=== PATIENT | male | born 1985 | race Caucasian/White ===

== ENCOUNTER 2016-12-13 20:09 | Emergency (ER) | payer BC ==
[~2016-12-13] VITALS: Ht 182.9 cm; Wt 87.6 kg
[~2016-12-13 20:09] MED LIST: IBUP600T26 PO; IBUP800T23 PO; LORTA5 PO
[2016-12-13 20:14] VITALS: BP 141/89; PULSE 97; RESP 16; TEMP 98.4; O2SAT 98
[2016-12-13] MEDS ORDERED: IBUPROFEN 600 MG TAB PO ONE (21:00)
--- NOTE | 2016-12-13 21:10 | RADRPT ---
EXAM DATE/TIME: 12/13/2016 20:50 [facility] COMPARISON: No previous studies available for comparison. INDICATIONS : Foot and ankle pain with no known injury. MEDICAL HISTORY : None. SURGICAL HISTORY : None. ENCOUNTER: Initial ACUITY: 1 day PAIN SCORE: 6/10 LOCATION: Left Foot. FINDINGS: Three view examination of the left foot demonstrates no soft tissue swelling, dislocation, or fractur e. The tarsal bones appear intact. The interphalangeal and metatarsophalangeal joints are intact. The calcaneus is intact. Bony mineralization is normal. CONCLUSION: Negative exam. Lc Steele MD on December 13, 2016 at 21:08 Board Certified Radiologist. This report was verified electronically.
--- NOTE | 2016-12-13 21:10 | RADRPT ---
EXAM DATE/TIME: 12/13/2016 20:50 [facility] COMPARISON: No previous studies available for comparison. INDICATIONS : Foot and ankle pain with no known injury. MEDICAL HISTORY : None. SURGICAL HISTORY : None. ENCOUNTER: Initial ACUITY: 1 day PAIN SCORE: 6/10 LOCATION: Left Ankle. FINDINGS: Three view exam was performed of the left ankle. The bony structures are in normal alignment. No ev idence of fracture, dislocation, or soft tissue swelling. The ankle mortise is intact. No radiopaqu e foreign bodies are seen. Bony mineralization is normal. CONCLUSION: Negative exam. Lc Steele MD on December 13, 2016 at 21:08 Board Certified Radiologist. This report was verified electronically.
--- NOTE | 2016-12-13 21:21 | PD ---
HPI . Left foot and ankle pain Chief Complaint: Musculoskeletal Complaint Time Seen by Provider: 20:37 Travel History International Travel<30 days: No Contact w/Intl Traveler<30days: No Traveled to known affect area: No History of Present Illness HPI 31-year-old male patient presents emergency department for evaluation of left foot and ankle pain. Patient states [place] and [place] of elevated boxes multiple times. Patient is unsure if he injured it during one of those jumps. Patient was noticing the pain and planning on going to see a environmental services associate on Thursday. Patient has a set of crutches at home that he got out and was starting to use and he actually slipped with the crutches and banged his foot down on the ground causing an exacerbation in the pain that was pre-existing. That is when the patient reported the emergency department for evaluation. The left foot and ankle are neurovascularly intact. Patient denies any major medical history. Patient does not take any daily medication. Patient has any fevers, chills, shortness breath, chest pain, malaise. Patient has been ambulatory on the left foot prior to accidentally banging it into the ground when he slipped on the crutches. PFSH Past Medical History Medical History: Denies Significant Hx Cancer: No Cardiovascular Problems: No Diminished Hearing: No Endocrine: No Genitourinary: Yes (INFECTION) Headaches: Yes Immune Disorder: No Musculoskeletal: No Neurologic: Yes Psychiatric: No Reproductive: No Respiratory: No Immunizations Current: Yes Tetanus Vaccination: < 5 Years Influenza Vaccination: No ?: Not Past Surgical History Abdominal Surgery: No Cardiac Surgery: No Eye Surgery: Yes (STRABISMUS) Oral Surgery: Yes (TONSILLECTOMY) Pacemaker: No Thoracic Surgery: No Tonsillectomy: Yes Social History Alcohol Use: Yes (SOCIALLY) Tobacco Use: No Substance Use: No Allergies-Medications (Allergen,Severity, Reaction): Coded Allergies: No Known Allergies (Unverified , 12/13/16) Reported Meds & Prescriptions Reported Meds & Active Scripts Active No Active Prescriptions or Reported Medications Review of Systems Except as stated in HPI: all other systems reviewed are Neg Physical Exam Narrative GENERAL: Well-nourished, well-developed 31-year-old male patient in no acute distress. Nontoxic appearing. SKIN: Focused skin assessment warm/dry. HEAD: Normocephalic. Atraumatic. NECK: Supple, trachea midline. No JVD or lymphadenopathy. CARDIOVASCULAR: Regular rate and rhythm without murmurs, gallops, or rubs. RESPIRATORY: Breath sounds equal bilaterally. No accessory muscle use. GASTROINTESTINAL: Abdomen soft, non-tender, nondistended. MUSCULOSKELETAL: Left foot pain with palpation. Mild edema noted. No obvious deformity. Data Data Last Documented VS Vital Signs Date Time Temp Pulse Resp B/P (MAP) Pulse Ox O2 Delivery O2 Flow Rate FiO2 12/13/16 20:14 98.4 97 16 141/89 (106) 98 Orders Orders Ankle, Complete ([id number]) (12/13/16 20:47) Foot, Complete ([id number]) (12/13/16 20:47) Ice/Cold Pack (12/13/16 20:47) Ibuprofen (Motrin) (12/13/16 21:00) Ed Discharge Order (12/13/16 21:21) MDM Medical Decision Making Medical Screen Exam Complete: Yes Emergency Medical Condition: Yes Differential Diagnosis Differential diagnosis includes but not limited to left foot fracture, left foot contusion, left foot sprain Narrative Course 31-year-old male patient presents emergency department for evaluation of left foot and ankle pain. Patient does not know of any exact injury that caused the pain. Patient had [place] and jumping [place] of elevated boxes multiple times and he believes that has contributed to the pain. Patient was planning on seeing a environmental services associate on Thursday and got a set of crutches that he had at home out. Patient actually slipped while using the crutches and banged his left foot into the ground. That caused an exacerbation of the pre-existing pain and brought the patient to the emergency department. The left foot is neurovascularly intact. Mild edema noted. No obvious deformity. X-ray of the left foot and ankle ordered and pending. X-ray of the left foot shows no acute findings. The left foot will be Sixto wrap and patient will be discharged home with instructions for rice therapy to the left foot and to follow up with his primary care environmental services associate. Diagnosis Primary Impression: Foot pain, left Additional Impression: Ankle pain, left Qualified Codes: M25.572 - Pain in left ankle and joints of left foot Referrals: Hide Measuring Machine Operator Patient Instructions: Foot Contusion (ED), General Instructions Additional Instructions: Please return to emergency department if your symptoms return or worsen. Follow up with your primary care provider and environmental services associate. Rice therapy to left foot and ankle. Rest, ice, Sixto wrap with activity and elevate the dressing. May use [id number] ibuprofen as needed for pain or swelling. Scripts No Active Prescriptions or Reported Meds Disposition: 01 DISCHARGE HOME Condition: Stable Ester Rivera Dec 13, 2016 21:21
--- NOTE | 2016-12-13 21:21 | PD ---
HPI . Left foot and ankle pain Chief Complaint: Musculoskeletal Complaint Time Seen by Provider: 20:37 Travel History International Travel<30 days: No Contact w/Intl Traveler<30days: No Traveled to known affect area: No History of Present Illness HPI 31-year-old male patient presents emergency department for evaluation of left foot and ankle pain. Patient states he had [place] and jumping off of elevated boxes multiple times. Patient is unsure if he injured it during one of those jumps. Patient was noticing the pain and planning on going to see a conventions assistant on Thursday. Patient has a set of crutches at home that he got out and was starting to use and he actually slipped with the crutches and banged his foot down on the ground causing an exacerbation in the pain that was pre-existing. That is when the patient reported the emergency department for evaluation. The left foot and ankle are neurovascularly intact. Patient denies any major medical history. Patient does not take any daily medication. Patient has any fevers, chills, shortness breath, chest pain, malaise. Patient has been ambulatory on the left foot prior to accidentally banging it into the ground when he slipped on the crutches. PFSH Past Medical History Medical History: Denies Significant Hx Cancer: No Cardiovascular Problems: No Diminished Hearing: No Endocrine: No Genitourinary: Yes (INFECTION) Headaches: Yes Immune Disorder: No Musculoskeletal: No Neurologic: Yes Psychiatric: No Reproductive: No Respiratory: No Immunizations Current: Yes Tetanus Vaccination: < 5 Years Influenza Vaccination: No ?: Not Past Surgical History Abdominal Surgery: No Cardiac Surgery: No Eye Surgery: Yes (STRABISMUS) Oral Surgery: Yes (TONSILLECTOMY) Pacemaker: No Thoracic Surgery: No Tonsillectomy: Yes Social History Alcohol Use: Yes (SOCIALLY) Tobacco Use: No Substance Use: No Allergies-Medications (Allergen,Severity, Reaction): Coded Allergies: No Known Allergies (Unverified , 12/13/16) Reported Meds & Prescriptions Reported Meds & Active Scripts Active No Active Prescriptions or Reported Medications Review of Systems Except as stated in HPI: all other systems reviewed are Neg Physical Exam Narrative GENERAL: Well-nourished, well-developed 31-year-old male patient in no acute distress. Nontoxic appearing. SKIN: Focused skin assessment warm/dry. HEAD: Normocephalic. Atraumatic. NECK: Supple, trachea midline. No JVD or lymphadenopathy. CARDIOVASCULAR: Regular rate and rhythm without murmurs, gallops, or rubs. RESPIRATORY: Breath sounds equal bilaterally. No accessory muscle use. GASTROINTESTINAL: Abdomen soft, non-tender, nondistended. MUSCULOSKELETAL: Left foot pain with palpation. Mild edema noted. No obvious deformity. Data Data Last Documented VS Vital Signs Date Time Temp Pulse Resp B/P (MAP) Pulse Ox O2 Delivery O2 Flow Rate FiO2 12/13/16 20:14 98.4 97 16 141/89 (106) 98 Orders Orders Ankle, Complete ([id number]) (12/13/16 20:47) Foot, Complete ([id number]) (12/13/16 20:47) Ice/Cold Pack (12/13/16 20:47) Ibuprofen (Motrin) (12/13/16 21:00) Ed Discharge Order (12/13/16 21:21) MDM Medical Decision Making Medical Screen Exam Complete: Yes Emergency Medical Condition: Yes Differential Diagnosis Differential diagnosis includes but not limited to left foot fracture, left foot contusion, left foot sprain Narrative Course 31-year-old male patient presents emergency department for evaluation of left foot and ankle pain. Patient does not know of any exact injury that caused the pain. Patient had [place] and jumping off of elevated boxes multiple times and he believes that has contributed to the pain. Patient was planning on seeing a conventions assistant on Thursday and got a set of crutches that he had at home out. Patient actually slipped while using the crutches and banged his left foot into the ground. That caused an exacerbation of the pre-existing pain and brought the patient to the emergency department. The left foot is neurovascularly intact. Mild edema noted. No obvious deformity. X-ray of the left foot and ankle ordered and pending. X-ray of the left foot shows no acute findings. The left foot will be Sixto wrap and patient will be discharged home with instructions for rice therapy to the left foot and to follow up with his primary care conventions assistant. Diagnosis Primary Impression: Foot pain, left Additional Impression: Ankle pain, left Qualified Codes: M25.572 - Pain in left ankle and joints of left foot Referrals: Train Director Patient Instructions: Foot Contusion (ED), General Instructions Additional Instructions: Please return to emergency department if your symptoms return or worsen. Follow up with your primary care provider and conventions assistant. Rice therapy to left foot and ankle. Rest, ice, Sixto wrap with activity and elevate the dressing. May use [id number] ibuprofen as needed for pain or swelling. Scripts No Active Prescriptions or Reported Meds Disposition: 01 DISCHARGE HOME Condition: Stable Ester Rivera Dec 13, 2016 21:21
--- NOTE | 2016-12-13 21:21 | PD ---
HPI . Left foot and ankle pain Chief Complaint: Musculoskeletal Complaint Time Seen by Provider: 20:37 Travel History International Travel<30 days: No Contact w/Intl Traveler<30days: No Traveled to known affect area: No History of Present Illness HPI 31-year-old male patient presents emergency department for evaluation of left foot and ankle pain. Patient states he had [place] and jumping off of elevated boxes multiple times. Patient is unsure if he injured it during one of those jumps. Patient was noticing the pain and planning on going to see a literature teacher on Thursday. Patient has a set of crutches at home that he got out and was starting to use and he actually slipped with the crutches and banged his foot down on the ground causing an exacerbation in the pain that was pre-existing. That is when the patient reported the emergency department for evaluation. The left foot and ankle are neurovascularly intact. Patient denies any major medical history. Patient does not take any daily medication. Patient has any fevers, chills, shortness breath, chest pain, malaise. Patient has been ambulatory on the left foot prior to accidentally banging it into the ground when he slipped on the crutches. PFSH Past Medical History Medical History: Denies Significant Hx Cancer: No Cardiovascular Problems: No Diminished Hearing: No Endocrine: No Genitourinary: Yes (INFECTION) Headaches: Yes Immune Disorder: No Musculoskeletal: No Neurologic: Yes Psychiatric: No Reproductive: No Respiratory: No Immunizations Current: Yes Tetanus Vaccination: < 5 Years Influenza Vaccination: No ?: Not Past Surgical History Abdominal Surgery: No Cardiac Surgery: No Eye Surgery: Yes (STRABISMUS) Oral Surgery: Yes (TONSILLECTOMY) Pacemaker: No Thoracic Surgery: No Tonsillectomy: Yes Social History Alcohol Use: Yes (SOCIALLY) Tobacco Use: No Substance Use: No Allergies-Medications (Allergen,Severity, Reaction): Coded Allergies: No Known Allergies (Unverified , 12/13/16) Reported Meds & Prescriptions Reported Meds & Active Scripts Active No Active Prescriptions or Reported Medications Review of Systems Except as stated in HPI: all other systems reviewed are Neg Physical Exam Narrative GENERAL: Well-nourished, well-developed 31-year-old male patient in no acute distress. Nontoxic appearing. SKIN: Focused skin assessment warm/dry. HEAD: Normocephalic. Atraumatic. NECK: Supple, trachea midline. No JVD or lymphadenopathy. CARDIOVASCULAR: Regular rate and rhythm without murmurs, gallops, or rubs. RESPIRATORY: Breath sounds equal bilaterally. No accessory muscle use. GASTROINTESTINAL: Abdomen soft, non-tender, nondistended. MUSCULOSKELETAL: Left foot pain with palpation. Mild edema noted. No obvious deformity. Data Data Last Documented VS Vital Signs Date Time Temp Pulse Resp B/P (MAP) Pulse Ox O2 Delivery O2 Flow Rate FiO2 12/13/16 20:14 98.4 97 16 141/89 (106) 98 Orders Orders Ankle, Complete ([id number]) (12/13/16 20:47) Foot, Complete ([id number]) (12/13/16 20:47) Ice/Cold Pack (12/13/16 20:47) Ibuprofen (Motrin) (12/13/16 21:00) Ed Discharge Order (12/13/16 21:21) MDM Medical Decision Making Medical Screen Exam Complete: Yes Emergency Medical Condition: Yes Differential Diagnosis Differential diagnosis includes but not limited to left foot fracture, left foot contusion, left foot sprain Narrative Course 31-year-old male patient presents emergency department for evaluation of left foot and ankle pain. Patient does not know of any exact injury that caused the pain. Patient had [place] and jumping off of elevated boxes multiple times and he believes that has contributed to the pain. Patient was planning on seeing a literature teacher on Thursday and got a set of crutches that he had at home out. Patient actually slipped while using the crutches and banged his left foot into the ground. That caused an exacerbation of the pre-existing pain and brought the patient to the emergency department. The left foot is neurovascularly intact. Mild edema noted. No obvious deformity. X-ray of the left foot and ankle ordered and pending. X-ray of the left foot shows no acute findings. The left foot will be Sixto wrap and patient will be discharged home with instructions for rice therapy to the left foot and to follow up with his primary care literature teacher. Diagnosis Primary Impression: Foot pain, left Additional Impression: Ankle pain, left Qualified Codes: M25.572 - Pain in left ankle and joints of left foot Referrals: Outsole Beveler Patient Instructions: Foot Contusion (ED), General Instructions Additional Instructions: Please return to emergency department if your symptoms return or worsen. Follow up with your primary care provider and literature teacher. Rice therapy to left foot and ankle. Rest, ice, Sixto wrap with activity and elevate the dressing. May use [id number] ibuprofen as needed for pain or swelling. Scripts No Active Prescriptions or Reported Meds Disposition: 01 DISCHARGE HOME Condition: Stable Ester Rivera Dec 13, 2016 21:21
== END 2016-12-13 21:48 | disposition home or self-care (01) ==
LOC: PHEFT 20:09
DX: M79.672 Pain in left foot (principal); M25.572 Pain in left ankle and joints of left foot
CPT/HCPCS: 73610; 73630; 99283